=== PATIENT | female | born 1970 | race Caucasian/White ===

== ENCOUNTER 2017-09-27 05:56 | Day surgery (SDC) | payer OTHER ==
[2017-09-27] MEDS ORDERED: PROPOFOL 200 MG INJ (07:00)
[2017-09-27] MEDS ORDERED: PROPOFOL 20 ML (07:19)
[2017-09-27] MEDS ORDERED: MIDAZOLAM 1 MG/ML 2 ML INJ (07:19)
[2017-09-27] MEDS ORDERED: PHENYLephrine (100 MCG/ML) 5ML SYG (07:19)
[2017-09-27] MEDS ORDERED: FENTAnyl 50 MCG/ML VIAL ×3 (07:19→09:46)
[2017-09-27] MEDS ORDERED: LIDOCAINE 2% (SDV) 5 ML INJ (07:19)
[2017-09-27] MEDS ORDERED: BUPIVACAINE 0.75%/DEXT (SPINAL) 2 ML INJ (07:33)
[2017-09-27] MEDS ORDERED: ACETAMINOPHEN 1000MG/100ML IV 100 ML (08:02)
[2017-09-27] MEDS ORDERED: SCOPOLAMINE 1.5 MG PATCH (08:10)
[2017-09-27] MEDS ORDERED: FAMOTIDINE 20 MG INJ (08:10)
[2017-09-27] MEDS ORDERED: ONDANSETRON 4 MG INJ (08:10)
[2017-09-27] MEDS ORDERED: DEXAMETHASONE 4 MG/ML 1 ML INJ (08:10)
[2017-09-27] MEDS: EPINEPHrine 1 MG/ML 30 ML INJ IRR (08:11)
[2017-09-27] MEDS ORDERED: OCULAR LUBRICANT 3.5 GM OPH OINT (08:19)
[2017-09-27] MEDS ORDERED: HYDROmorphONE 2 MG/ML SYG (08:45)
[2017-09-27] MEDS ORDERED: FENTAnyl 50 MCG/ML VIAL IV (09:00)
[2017-09-27] MEDS ORDERED: METOCLOPRAMIDE 10 MG INJ IV (09:00)
[2017-09-27] MEDS ORDERED: ONDANSETRON 4 MG INJ IV (09:00)
[2017-09-27] MEDS ORDERED: MIDAZOLAM 1 MG/ML 2 ML INJ IV (09:00)
[2017-09-27] MEDS ORDERED: LABETALOL HCL 20MG INJ IV (09:00)
[2017-09-27] MEDS ORDERED: DIPHENHYDRAMINE 50 MG INJ IV (09:00)
[2017-09-27] MEDS: morphine SULFATE/PF (10 MG/10 ML) INJ (09:07)
[2017-09-27] MEDS ORDERED: hydrALAzine 20 MG INJ (09:46)
[2017-09-27] MEDS: FENTAnyl 50 MCG/ML VIAL IV (09:52)
[2017-09-27] MEDS: hydrALAzine 20 MG INJ IV (09:53)
[2017-09-27] MEDS: OXYCODONE/ACETAMINOPHEN (5/325) TAB PO (10:52)
== END 2017-09-27 12:00 | disposition home or self-care (01) ==
LOC: SDS 05:56
DX: M23.251 Derangement of posterior horn of lateral meniscus due to old tear or injury, right knee (principal); M23.221 Derangement of posterior horn of medial meniscus due to old tear or injury, right knee; M23.211 Derangement of anterior horn of medial meniscus due to old tear or injury, right knee; M65.861 Other synovitis and tenosynovitis, right lower leg; M06.9 Rheumatoid arthritis, unspecified; E66.01 Morbid (severe) obesity due to excess calories; Z68.42 Body mass index [BMI] 45.0-49.9, adult
CPT/HCPCS: 29880

== ENCOUNTER 2018-12-12 09:26 | Day surgery (SDC) | payer OTHER ==
[~2018-12-12 09:26] MED LIST: CEFAZOLIN 1 GM/50 ML (PMX) 50 ML IVPB; EPINEPHrine 1 MG/ML 30 ML INJ INH
[2018-12-12] MEDS ORDERED: morphine SULFATE/PF (10 MG/10 ML) INJ (10:32)
[2018-12-12] MEDS ORDERED: SUCCINYLCHOLINE CHLORIDE 100 MG/5 ML SYG IV (10:40)
[2018-12-12] MEDS ORDERED: PROPOFOL 20 ML (10:40)
[2018-12-12] MEDS ORDERED: LIDOCAINE 1% (MDV) 20 ML INJ (10:40)
[2018-12-12] MEDS ORDERED: ROPIVACAINE 0.5 % 30 ML VIAL (10:42)
[2018-12-12] MEDS ORDERED: CEFAZOLIN 1 GM INJ (10:45)
[2018-12-12] MEDS ORDERED: ONDANSETRON 4 MG INJ (10:45)
[2018-12-12] MEDS: morphine SULFATE/PF (10 MG/10 ML) INJ (11:35)
[2018-12-12] MEDS: EPINEPHrine 1 MG/ML 30 ML INJ IRR (11:35)
[2018-12-12] MEDS ORDERED: HYDROmorphONE 1 MG/5 ML IV SYRINGE IV ×3 (12:18→12:30)
[2018-12-12] MEDS: HYDROmorphONE 1 MG/5 ML IV SYRINGE IV (12:34)
[2018-12-12] MEDS: LACTATED RINGER'S 1,000 ML IV (12:50)
== END 2018-12-12 14:00 | disposition home or self-care (01) ==
LOC: SDS 09:26
DX: S83.232D Complex tear of medial meniscus, current injury, left knee, subsequent encounter (principal); S83.282D Other tear of lateral meniscus, current injury, left knee, subsequent encounter; X58.XXXD Exposure to other specified factors, subsequent encounter; M94.262 Chondromalacia, left knee; M65.862 Other synovitis and tenosynovitis, left lower leg
CPT/HCPCS: 29880; 84703